=== PATIENT | male | born 1975 ===

== ENCOUNTER 2021-04-07 00:41 | Inpatient (IN) | payer OTHER ==
[2021-04-07 01:08] VITALS: BMI 36.9
[2021-04-07] MEDS ORDERED: Ondansetron PF 4 MG/2 ML Vial IVP PRN (05:35)
[2021-04-07] MEDS ORDERED: Ondansetron ODT 4 MG TAB PO PRN (05:35)
[2021-04-07] MEDS ORDERED: Acetaminophen 650 MG Suppository PR PRN (05:35)
[2021-04-07 06:59] LABS: #Eosinphils 0.2 thou/uL (0.0-0.7); #Lymphocytes 1.9 thou/uL (1.20-3.40); #Monocytes 0.4 thou/uL (0.11-0.59); #Neutrophils 2.6 thou/uL (1.40-6.50); %Basophils 0.3 % (0.0-1.0); %Eosinophils 3.7 % (0.0-10.0); %Lymphocytes 36.1 % (21.0-51.0); %Monocytes 8.6 % (0.0-10.0); %Neutrophils 51.3 % (42.0-75.0); Hemoglobin 14.7 g/dL (14.0-18.0); Mean Corpuscular HGB CONC 32.3 g/dL (32.0-36.0); Mean Corpuscular Hemoglobin 28.2 pg (27.0-31.0); Mean Corpuscular Volume 87.5 fL (78.0-98.0); Mean Platelet Volume 6.4 fL (7.4-10.4); Platelet Count 377 thou/uL (130-400); RBC Distribution Width 12.9 % (11.5-14.5); White Blood Cell (WBC) Count 5.2 thou/uL (4.8-10.8)
[2021-04-07 07:14] LABS: Anion Gap 13 mmol/L (10-20); BUN (Urea Nitrogen) 9 mg/dL (8.9-20.6); Calc. Creatinine Clearance 163 mL/min (70-130); Calcium 9.6 mg/dL (7.8-10.44); Carbon Dioxide 26 mmol/L (22-29); Chloride 104 mmol/L (98-107); Glucose 93 mg/dL (70-105); Potassium 4.1 mmol/L (3.5-5.1); Sodium 139 mmol/L (136-145)
[2021-04-07] MEDS ORDERED: metroNIDAZOLE 500 MG in Premix Bag 1 BAG IVPB SCH (08:00)
[2021-04-07] MEDS ORDERED: VANCOMYCIN 1.25 GM/250 ML BAG 1.25 GM in Premix Bag 1 BAG IVPB SCH ×2 (08:00→10:00)
[2021-04-07] MEDS ORDERED: Cefepime 2 GM in Sodium Chloride 0.9% 100 ML IVPB SCH ×2 (08:00→09:00)
[2021-04-07] MEDS: Enoxaparin Sodium 40 MG/0.4 ML SYRINGE SC SCH (09:20)
[2021-04-07] MEDS: metroNIDAZOLE 500 MG in Premix Bag 1 BAG IVPB SCH ×3 (09:29→23:47)
[2021-04-07] MEDS ORDERED: Vancomycin HCl 500 MG in Sodium Chloride 0.9% 100 ML IVPB SCH (09:30)
[2021-04-07] MEDS: Cefepime 2 GM in Sodium Chloride 0.9% 100 ML IVPB SCH ×2 (11:47→23:05)
[2021-04-07] MEDS: VANCOMYCIN 1.75 GM/350 ML BAG 1.75 GM in Premix Bag 1 BAG IVPB SCH (17:30)
[2021-04-07] MEDS: Atorvastatin Calcium 10 MG TAB PO SCH (20:03)
[2021-04-07] MEDS: Acetaminophen 325 MG TAB PO PRN (20:07)
[2021-04-08] MEDS: VANCOMYCIN 1.75 GM/350 ML BAG 1.75 GM in Premix Bag 1 BAG IVPB SCH (01:03)
[2021-04-08 06:01] LABS: #Eosinphils 0.3 thou/uL (0.0-0.7); #Lymphocytes 1.7 thou/uL (1.20-3.40); #Monocytes 0.6 thou/uL (0.11-0.59); #Neutrophils 2.6 thou/uL (1.40-6.50); %Basophils 0.1 % (0.0-1.0); %Eosinophils 5.6 % (0.0-10.0); %Lymphocytes 32.7 % (21.0-51.0); %Monocytes 12.2 % (0.0-10.0); %Neutrophils 49.5 % (42.0-75.0); Hemoglobin 13.9 g/dL (14.0-18.0); Mean Corpuscular HGB CONC 31.3 g/dL (32.0-36.0); Mean Corpuscular Hemoglobin 27.5 pg (27.0-31.0); Mean Corpuscular Volume 87.9 fL (78.0-98.0); Mean Platelet Volume 6.2 fL (7.4-10.4); Platelet Count 342 thou/uL (130-400); RBC Distribution Width 12.8 % (11.5-14.5); Red Blood Cell (RBC) Count 5.06 mill/uL (4.70-6.10); White Blood Cell (WBC) Count 5.2 thou/uL (4.8-10.8)
[2021-04-08 06:18] LABS: Anion Gap 11 mmol/L (10-20); BUN (Urea Nitrogen) 9 mg/dL (8.9-20.6); Calc. Creatinine Clearance 144 mL/min (70-130); Calcium 9.1 mg/dL (7.8-10.44); Carbon Dioxide 26 mmol/L (22-29); Chloride 106 mmol/L (98-107); Glucose 92 mg/dL (70-105); Potassium 4.1 mmol/L (3.5-5.1); Sodium 139 mmol/L (136-145)
[2021-04-08] MEDS: metroNIDAZOLE 500 MG in Premix Bag 1 BAG IVPB SCH (07:39)
[2021-04-08 08:30] LABS: Vancomycin, Trough 31.4 ug/mL
[2021-04-08] MEDS: Aspirin 81 mg Enteric Coated Tablet PO SCH (09:05)
[2021-04-08] MEDS: Enoxaparin Sodium 40 MG/0.4 ML SYRINGE SC SCH (09:06)
[2021-04-08] MEDS: Lisinopril 20 MG TAB PO SCH (09:06)
[2021-04-08] MEDS: Clindamycin/D5W 900 MG in Premix Bag 1 BAG IVPB SCH ×2 (10:16→17:10)
[2021-04-08] MEDS: Acetaminophen 325 MG TAB PO PRN (18:51)
[2021-04-08] MEDS: Atorvastatin Calcium 10 MG TAB PO SCH (20:16)
[2021-04-09] MEDS: Clindamycin/D5W 900 MG in Premix Bag 1 BAG IVPB SCH ×3 (01:29→18:45)
[2021-04-09] MEDS: Acetaminophen 325 MG TAB PO PRN ×2 (04:02→19:50)
[2021-04-09] MEDS: Enoxaparin Sodium 40 MG/0.4 ML SYRINGE SC SCH (10:00)
[2021-04-09] MEDS: Aspirin 81 mg Enteric Coated Tablet PO SCH (10:00)
[2021-04-09] MEDS: Lisinopril 20 MG TAB PO SCH (10:00)
[2021-04-09] MEDS: Atorvastatin Calcium 10 MG TAB PO SCH (19:50)
[2021-04-10] MEDS: Clindamycin/D5W 900 MG in Premix Bag 1 BAG IVPB SCH ×3 (01:23→19:00)
[2021-04-10 06:24] LABS: #Eosinphils 0.3 thou/uL (0.0-0.7); #Lymphocytes 1.8 thou/uL (1.20-3.40); #Monocytes 0.7 thou/uL (0.11-0.59); %Basophils 0.3 % (0.0-1.0); %Eosinophils 5.5 % (0.0-10.0); %Lymphocytes 37.3 % (21.0-51.0); %Monocytes 13.9 % (0.0-10.0); %Neutrophils 42.9 % (42.0-75.0); Hemoglobin 13.3 g/dL (14.0-18.0); Mean Corpuscular HGB CONC 32.5 g/dL (32.0-36.0); Mean Corpuscular Hemoglobin 28.7 pg (27.0-31.0); Mean Corpuscular Volume 88.4 fL (78.0-98.0); Mean Platelet Volume 6.3 fL (7.4-10.4); Platelet Count 320 thou/uL (130-400); Red Blood Cell (RBC) Count 4.65 mill/uL (4.70-6.10); White Blood Cell (WBC) Count 4.7 thou/uL (4.8-10.8)
[2021-04-10 06:42] LABS: Anion Gap 10 mmol/L (10-20); BUN (Urea Nitrogen) 9 mg/dL (8.9-20.6); Calc. Creatinine Clearance 147 mL/min (70-130); Calcium 8.9 mg/dL (7.8-10.44); Carbon Dioxide 26 mmol/L (22-29); Chloride 109 mmol/L (98-107); Glucose 104 mg/dL (70-105); Potassium 4.3 mmol/L (3.5-5.1); Sodium 141 mmol/L (136-145)
[2021-04-10] MEDS: Lisinopril 20 MG TAB PO SCH (09:32)
[2021-04-10] MEDS: Enoxaparin Sodium 40 MG/0.4 ML SYRINGE SC SCH (09:32)
[2021-04-10] MEDS: Aspirin 81 mg Enteric Coated Tablet PO SCH (09:32)
[2021-04-10] MEDS: Atorvastatin Calcium 10 MG TAB PO SCH (20:27)
[2021-04-10] MEDS ORDERED: FLU VACC QS2021-22(6MOS UP)/PF 60 MCG/0.5 ML SYRINGE IM ONE (21:00)
[2021-04-11] MEDS: Clindamycin/D5W 900 MG in Premix Bag 1 BAG IVPB SCH ×3 (02:04→17:23)
[2021-04-11] MEDS: Aspirin 81 mg Enteric Coated Tablet PO SCH (08:21)
[2021-04-11] MEDS: Enoxaparin Sodium 40 MG/0.4 ML SYRINGE SC SCH (08:21)
[2021-04-11] MEDS: Lisinopril 20 MG TAB PO SCH (08:22)
[2021-04-11] MEDS: Saccharomyces boulardii 250 MG CAP PO SCH (08:22)
[2021-04-11] MEDS: Atorvastatin Calcium 10 MG TAB PO SCH (20:26)
[2021-04-12] MEDS: Clindamycin/D5W 900 MG in Premix Bag 1 BAG IVPB SCH ×2 (02:20→09:21)
[2021-04-12] MEDS: Lisinopril 20 MG TAB PO SCH (09:21)
[2021-04-12] MEDS: Saccharomyces boulardii 250 MG CAP PO SCH (09:21)
[2021-04-12] MEDS: Enoxaparin Sodium 40 MG/0.4 ML SYRINGE SC SCH (09:21)
[2021-04-12] MEDS: Aspirin 81 mg Enteric Coated Tablet PO SCH (09:21)
[2021-04-12 12:17] VITALS: BP 124/78; TEMP 98.4
[2021-04-12] MEDS ORDERED: Clindamycin 150 MG CAP PO SCH (18:00)
== END 2021-04-12 14:45 | disposition home or self-care (01) | DRG 603 ==
LOC: SURG A 00:41 → EEVIPCON 00:41
PROVIDERS: ADMIT Student in an Organized Health Care Education/Training Program; ATTEND Internal Medicine
DX: L02.11 Cutaneous abscess of neck (principal); L02.01 Cutaneous abscess of face; I10 Essential (primary) hypertension; Z88.1 Allergy status to other antibiotic agents; Z79.82 Long term (current) use of aspirin; Z79.899 Other long term (current) drug therapy
CPT/HCPCS: 36415; 80048; 80202; 85025; 90471; 90686; G0008; J0692; J1650; J3370; J3490